=== PATIENT | female | born 1965 | race Caucasian/White ===

== ENCOUNTER 2020-05-27 10:16 | Outpatient (CLI) | payer OTHER, SELFPAY ==
--- NOTE | ~2020-05-27 | MR_ITS ---
EXAMINATION: MR knee RT wo con DATE: 05/27/2020 11:44 INDICATION: Primary osteoarthritis of the right knee with chronic generalized right knee pain TECHNIQUE: Magnetic resonance imaging (MRI) of the right knee was performed without intravenous contr ast. Sequences included coronal PD-weighted FSE, coronal PD-weighted FS FSE, sagittal T2-weighted FS E, sagittal PD-weighted FS FSE and axial PD weighted fat saturated FSE. COMPARISON: None. FINDINGS: Medial compartment: Complex tear of the medial meniscus with longitudinal horizontal tear plane extending from the [employer] ior horn and crosses the medial extruded meniscal body into the anterior horn. Additional secondary t ear planes in the anterior horn and secondary radial tear and longitudinal vertical tear planes in th e small posterior horn. There is extensive cartilage loss which appears full/near full-thickness invo lving the majority of the medial tibial plateau and all but the posterior most weightbearing medial f emoral condyle. There is scattered mild irregularity to the articular cortex in the central to [employer] ior weightbearing lateral femoral condyle and regions of low signal intensity subarticular eburnation at the medial tibial plateau and anterior weightbearing medial femoral condyle. Moderate-sized large marginal osteophytes along the medial femoral condyle and small marginal osteophytes along the media l tibial plateau. Lateral compartment: Lateral meniscus is normal. Mild partial thickness cartilage loss with chondral surface regularity at the central aspect of the lateral tibial plateau and along the lateral side of the weightbearing ant erior to posterior lateral femoral condyle. Patellofemoral compartment: Full/near full-thickness chondral ulceration at the inferior aspect of the lateral patellar facet. Pa rtial-thickness cartilage loss with deep fissuring and mild subarticular edema at the central third o f the lateral patellar facet and patellar apical ridge. Small deep chondral ulceration with subarticu lar edema at the inferior aspect of the lateral trochlea and more prominently at the inferior aspect of the medial trochlea. There is some chondral surface regularity along the cephalad aspect of the tr ochlea both medially, laterally and at the trochlear groove. Moderate to large trochlear marginal ost eophytes and small to moderate-sized patellar marginal osteophytes. Ligaments and tendons: Anterior and posterior cruciate ligaments are normal. The medial collateral ligament and fibular jeovany ateral ligament complex are normal. The extensor mechanism is normal. The visualized medial and later al hamstring tendons as well as the iliotibial band are normal. Fluid: Small to moderate-sized right knee joint effusion. Moderate-sized Calvert's cyst. There are few scatter ed ovoid loose osteochondral bodies, 2 in the medial gutter of the suprapatellar pouch, one in the re cesses anterior to the intertubercular groove and one in the posterior recess posterior to the [employer] ior root of the lateral meniscus. Osseous/other: Normal marrow signal aside from the previous noted scattered mild subarticular edema. No fracture or pathologic marrow replacing process. IMPRESSION: 1. Complex medial meniscal tear. 2. Tricompartmental osteoarthritis, severe in the medial, moderate in the patellofemoral and mild in the lateral compartments with scattered moderate and high-grade chondromalacia as detailed above. 3. Small to moderate-sized right knee joint effusion with at least 4 scattered loose osteochondral radha dies. 4. Moderate-sized Calvert's cyst. Reviewed, dictated and finalized at location A. INPUT CLERK
== END 2020-05-27 10:17 ==
PROVIDERS: PCP Family Medicine
DX: M17.11 Unilateral primary osteoarthritis, right knee (principal); S83.231A Complex tear of medial meniscus, current injury, right knee, initial encounter; M94.261 Chondromalacia, right knee; M25.461 Effusion, right knee; M23.41 Loose body in knee, right knee; M71.21 Synovial cyst of popliteal space [Baker], right knee
CPT/HCPCS: 73721

== ENCOUNTER 2021-11-01 10:27 | Outpatient (CLI) | payer BC, SELFPAY ==
--- NOTE | ~2021-11-01 | XR_ITS ---
XR cervical spine 4-5V 11/01/2021 11:09 Indication: Rheumatoid arthritis. Procedure: 4 view cervical spine Comparison: No prior studies for comparison. Findings: There is moderate-severe multilevel facet hypertrophy.. There is degenerative anterolisthes is at C4-5 and C5-6. There is degenerative disc disease at C6-7. No prevertebral soft tissue abnormal ity. Odontoid process is normal. Lung apices are normal. Impression: 1: Moderate-severe cervical spondylosis. Reviewed, dictated and finalized at location A. Impression: 1: Moderate-severe cervical spondylosis.
--- NOTE | ~2021-11-01 | XR_ITS ---
EXAM: XR sacroiliac joints min 3V DATE: 11/01/2021 11:09 HISTORY: M05.79 - Rheumatoid arthritis with rheumatoid factor of m... . COMPARISON: None available. FINDINGS: Subjectively decreased mineralization. No fracture or dislocation. No lytic or blastic les ion. Subchondral sclerosis and erosion at the bilateral SI joints and pubic symphysis. Mild superior bilateral hip joint space narrowing. No erosion or periosteal change. Soft tissues within normal limi ts. IMPRESSION: Mild bilateral, symmetric sacroiliitis. Osteitis pubis. Mild osteoarthritic change in the bilateral hips. Reviewed, dictated and finalized at location K. IMPRESSION: Mild bilateral, symmetric sacroiliitis. Osteitis pubis. Mild osteoa rthritic change in the bilateral hips.
--- NOTE | ~2021-11-01 | XR_ITS ---
EXAM: XR hand BI arthritis min 3V DATE: 11/01/2021 11:09 HISTORY: M05.79 - Rheumatoid arthritis with rheumatoid factor of m... . COMPARISON: 05/28/2012. FINDINGS: Decreased mineralization. No fracture or dislocation. No lytic or blastic lesion. Joint sp rhett narrowing and minimal osteophytosis at multiple joints in the bilateral hands, most evident in th e interphalangeal joints of the fingers and the bilateral first MCP joints. More severe change with a djacent ossification/fragments in the PIP joints of the left middle and ring fingers, may have a comp onent of posttraumatic change. Moderate ulnar subluxation of the little fingers bilaterally in the ba ll-catcher's view, with mild subluxation of the remaining fingers. No erosion or periosteal change. S oft tissues within normal limits. IMPRESSION: Mild osteoarthritic changes in the hands. Moderate ulnar subluxation of the bilateral lit tle fingers, a finding that can be seen with rheumatoid arthritis. Reviewed, dictated and finalized at location K. IMPRESSION: Mild osteoarthritic changes in the hands. Moderate ulnar subluxatio n of the bilateral little fingers, a finding that can be seen with rheumatoid a rthritis.
--- NOTE | ~2021-11-01 | XR_ITS ---
EXAM: XR foot RT standing 2V, XR foot LT standing 2V DATE: 11/01/2021 11:09 HISTORY: M05.79 - Rheumatoid arthritis with rheumatoid factor of m... . COMPARISON: None available. FINDINGS: Decreased mineralization. No fracture or dislocation. No lytic or blastic lesion. Mild tyra ateral hallux valgus, slightly worse on the right. Mild degenerative change at the bilateral first MT P joints. Bilateral plantar and Achilles enthesopathy. Bilateral loss of the longitudinal arch. No er osion or periosteal change. Soft tissues within normal limits. IMPRESSION: Osteopenia. Bilateral hallux valgus. Bilateral Achilles and plantar enthesopathy. Bilater al pes planus. Reviewed, dictated and finalized at location K. IMPRESSION: Osteopenia. Bilateral hallux valgus. Bilateral Achilles and plantar enthesopathy. Bilateral pes planus.
[2021-11-01 10:51] LABS: Basophils Absolute Auto 0.1 K/mm3 (0.0-0.1); Basophils Percent Auto 0.7 % (0.2-1.2); Eosinophils Absolute Auto 0.3 K/mm3 (0-0.3); Eosinophils Percent Auto 3.1 % (0-4.4); Hematocrit 39.5 % (37.0-47.0); Hemoglobin 12.1 g/dL (12.0-15.0); Immature Granulocyte Absolute 0.03 K/mm3 (0.00-0.031); Immature Granulocyte Percent A 0.4 % (0-0.5); Lymphocytes Absolute Auto 2.52 K/mm3 (0.9-3.2); Mean Corpuscular HGB Conc 30.6 g/dl (32-36); Mean Corpuscular Hemoglobin 28.4 pg (26-34); Mean Corpuscular Volume 92.7 fl (80-100); Mean Platelet Volume 10.1 fl (7.4-10.4); Monocytes Absolute Auto 0.6 K/mm3 (0.1-0.6); Monocytes Percent Auto 6.8 % (2.6-8.5); Platelet Count Result 320 k/mm3 (150-375); Red Blood Count 4.26 M/mm3 (4.2-5.4); Red Cell Distribution Width 13.2 % (11.5-14.5); White Blood Count 8.4 K/mm3 (4.5-10.0)
[2021-11-01 10:57] LABS: Appearance Urine Clear (Clear); Bilirubin Urine Negative (Negative); Blood Urine Negative (Negative); Color Urine Yellow (Yellow); Glucose Urine UA Negative (Negative); Ketones Urine Trace mg/dL (Negative); Leukocyte Esterase Ur 1+ LEU/UL (Negative); Nitrate Urine Negative (Negative); Protein Urine Negative (Negative); Specific Grav Ur 1.025 (1.001-1.035); Urobilinogen Urine 0.2 mg/dL (<2.0)
[2021-11-01 10:59] LABS: Add Urine Microscopic? YES; Bacteria Urine Trace /hpf; Mucus Urine Rare /lpf; RBC Urine 0-2 /hpf (0-2); Squamous Epithelial Cell Urine Rare /hpf (Few); WBC Urine 0-3 /hpf
[2021-11-01 11:05] LABS: Rheumatoid Factor 19.1 IU/ML (<12)
[2021-11-01 11:06] LABS: Alanine Aminotransferase 44 U/L (6-35); Albumin Level 4.1 g/dL (3.5-5.1); Alkaline Phosphatase 116 U/L (38-126); Anion Gap 5 mmol/L (8-16); Aspartate Amino Transferase 22 U/L (14-36); Bilirubin,Total 0.3 mg/dL (0.2-1.3); Blood Urea Nitrogen 12 mg/dL (7-17); CRP < 0.5 mg/dL (<1.0); Calcium 8.5 mg/dL (8.4-10.2); Carbon Dioxide 32 mmol/L (22-30); Chloride 103 mmol/L (98-107); Estimated Glomerular Filt Rate > 60; Glucose 117 mg/dL (65-110); Potassium 4.2 mmol/L (3.4-5.0); Sodium 140 mmol/L (137-145)
[2021-11-01 11:45] LABS: Hepatitis B Surface Antigen Negative (Negative)
[2021-11-01 11:46] LABS: Erythrocyte Sedimentation Rate 16 mm/hr (0-20)
[2021-11-01 12:02] LABS: Hepatitis B Surface Anti Res Negative; Hepatitis C Virus Antibody Negative (Negative)
[2021-11-03 11:46] LABS: NIL 0.01 IU/mL; Quantiferon TB Plus, 1T NEGATIVE (NEGATIVE)
[2021-11-05 20:31] LABS: Anti Cyclic Citrullinated Pept 36 Units (<20)
== END 2021-11-01 10:28 | disposition home or self-care (01) ==
LOC: ANHLAB 10:29
PROVIDERS: PCP Family Medicine; Visit Provider Internal Medicine
DX: M19.90 Unspecified osteoarthritis, unspecified site (principal); M05.79 Rheumatoid arthritis with rheumatoid factor of multiple sites without organ or systems involvement; M85.872 Other specified disorders of bone density and structure, left ankle and foot; M85.871 Other specified disorders of bone density and structure, right ankle and foot; M20.12 Hallux valgus (acquired), left foot; M20.11 Hallux valgus (acquired), right foot; M77.32 Calcaneal spur, left foot; M77.31 Calcaneal spur, right foot; M21.42 Flat foot [pes planus] (acquired), left foot; M21.41 Flat foot [pes planus] (acquired), right foot; M46.1 Sacroiliitis, not elsewhere classified; M86.8X8 Other osteomyelitis, other site; M16.0 Bilateral primary osteoarthritis of hip; M19.042 Primary osteoarthritis, left hand; M19.041 Primary osteoarthritis, right hand; S63.20 Unspecified subluxation of other finger; M47.812 Spondylosis without myelopathy or radiculopathy, cervical region
CPT/HCPCS: 36415; 72050; 72202; 73130; 73620; 80053; 81001; 85025; 85652; 86038; 86140; 86200; 86430; 86480; 86706; 86803; 87340

== ENCOUNTER 2022-07-27 11:56 | Outpatient (CLI) | payer BC, SELFPAY ==
[2022-07-27 12:46] LABS: Appearance Urine Clear (Clear); Bilirubin Urine Negative (Negative); Blood Urine Negative (Negative); Color Urine Yellow (Yellow); Glucose Urine UA Negative (Negative); Ketones Urine Negative (Negative); Leukocyte Esterase Ur Negative LEU/UL (Negative); Nitrate Urine Negative (Negative); Protein Urine Negative (Negative); Specific Grav Ur 1.009 (1.001-1.035); Urobilinogen Urine 0.2 mg/dL (<2.0)
[2022-07-27 12:57] LABS: Alanine Aminotransferase 27 U/L (6-35); Albumin Level 4.1 g/dL (3.5-5.1); Alkaline Phosphatase 98 U/L (38-126); Anion Gap 7 mmol/L (8-16); Aspartate Amino Transferase 21 U/L (14-36); Bilirubin,Total 0.5 mg/dL (0.2-1.3); Blood Urea Nitrogen 12 mg/dL (7-17); CRP 0.5 mg/dL (<1.0); Calcium 8.8 mg/dL (8.4-10.2); Carbon Dioxide 27 mmol/L (22-30); Chloride 102 mmol/L (98-107); Estimated Glomerular Filt Rate > 60; Glucose 92 mg/dL (65-110); Sodium 136 mmol/L (137-145)
[2022-07-27 13:03] LABS: Erythrocyte Sedimentation Rate 17 mm/hr (0-20)
[2022-07-27 13:12] LABS: Add Urine Microscopic? NO
== END 2022-07-27 11:57 | disposition home or self-care (01) ==
PROVIDERS: PCP Family Medicine; Visit Provider Internal Medicine
DX: M05.79 Rheumatoid arthritis with rheumatoid factor of multiple sites without organ or systems involvement (principal); M19.90 Unspecified osteoarthritis, unspecified site
CPT/HCPCS: 36415; 80053; 81003; 85652; 86140

== ENCOUNTER 2023-02-15 07:46 | Outpatient (CLI) | payer OTHER, SELFPAY ==
[2023-02-15 10:32] LABS: Cortisol Baseline 3.63 ug/dL
[2023-02-15 10:34] LABS: Cortisol 30 Minute 5.34 ug/dL
[2023-02-15 11:00] LABS: Cortisol 60 Minute 5.86 ug/dL
== END 2023-02-15 07:47 | disposition home or self-care (01) ==
PROVIDERS: PCP Internal Medicine; Visit Provider Internal Medicine
DX: E27.40 Unspecified adrenocortical insufficiency (principal)
CPT/HCPCS: 36415; 82533; 96372; J0834

== ENCOUNTER 2023-05-11 11:55 | Outpatient (CLI) | payer OTHER, SELFPAY ==
[2023-05-11 12:27] LABS: Hematocrit 41.9 % (37.0-47.0); Mean Corpuscular Hemoglobin 28.5 pg (26-34); Mean Corpuscular Volume 91.9 fl (80-100); Mean Platelet Volume 11.1 fl (7.4-10.4); Platelet Count Result 318 k/mm3 (150-375); Red Blood Count 4.56 M/mm3 (4.2-5.4); Red Cell Distribution Width 13.1 % (11.5-14.5)
[2023-05-11 12:39] LABS: Appearance Urine Cloudy (Clear); Bacteria Urine None Seen /hpf; Bilirubin Urine Negative (Negative); Blood Urine Negative (Negative); Color Urine Dark Yellow (Yellow); Glucose Urine UA Negative (Negative); Ketones Urine Trace mg/dL (Negative); Leukocyte Esterase Ur Trace LEU/UL (Negative); Nitrate Urine Negative (Negative); Non Pathogenic Casts 0-2; Protein Urine Trace mg/dL (Negative); RBC Urine 0-2 /hpf (0-2); Specific Grav Ur 1.019 (1.001-1.035); Squamous Epithelial Cell Urine None seen /hpf (Few); WBC Urine 0-5 /hpf
[2023-05-11 12:40] LABS: Add Urine Microscopic? YES
[2023-05-11 12:46] LABS: Alanine Aminotransferase 32 U/L (6-35); Albumin Level 4.1 g/dL (3.5-5.1); Alkaline Phosphatase 103 U/L (38-126); Anion Gap 7 mmol/L (8-16); Aspartate Amino Transferase 30 U/L (14-36); Bilirubin,Total 0.4 mg/dL (0.2-1.3); Blood Urea Nitrogen 11 mg/dL (7-17); CRP < 0.5 mg/dL (<1.0); Calcium 9.4 mg/dL (8.4-10.2); Carbon Dioxide 27 mmol/L (22-30); Chloride 104 mmol/L (98-107); Estimated Glomerular Filt Rate > 60; Glucose 126 mg/dL (65-110); Potassium 3.6 mmol/L (3.4-5.0); Sodium 138 mmol/L (137-145)
[2023-05-11 12:52] LABS: Erythrocyte Sedimentation Rate 16 mm/hr (0-20)
== END 2023-05-11 11:56 | disposition home or self-care (01) ==
LOC: ANHLAB 11:56
PROVIDERS: PCP Internal Medicine; Visit Provider Internal Medicine
DX: M05.79 Rheumatoid arthritis with rheumatoid factor of multiple sites without organ or systems involvement (principal)
CPT/HCPCS: 36415; 80053; 81001; 85027; 85652; 86140

== ENCOUNTER 2023-06-21 09:50 | Outpatient (CLI) | payer OTHER, SELFPAY ==
[2023-06-21 11:19] LABS: Hemoglobin A1C 5.5 % (<5.7)
[2023-06-21 11:33] LABS: Free T4 Free Thyroxine 0.85 ng/mL (0.78-2.19); Vitamin D 25 Hydroxy 26.5 ng/mL
== END 2023-06-21 09:51 | disposition home or self-care (01) ==
LOC: ANHLAB 09:52
PROVIDERS: PCP Internal Medicine; Visit Provider Internal Medicine
DX: E27.40 Unspecified adrenocortical insufficiency (principal)
CPT/HCPCS: 36415; 82306; 83036; 84439; 84443

== ENCOUNTER 2023-07-24 08:03 | Outpatient (CLI) | payer OTHER, SELFPAY ==
[2023-07-24 09:00] LABS: Appearance Urine Clear (Clear); Bilirubin Urine Negative (Negative); Blood Urine Negative (Negative); Color Urine Yellow (Yellow); Glucose Urine UA Negative (Negative); Ketones Urine Negative (Negative); Leukocyte Esterase Ur Negative LEU/UL (Negative); Nitrate Urine Negative (Negative); Protein Urine Negative (Negative); Specific Grav Ur 1.022 (1.001-1.035); Urobilinogen Urine 0.2 mg/dL (<2.0)
[2023-07-24 09:03] LABS: Hematocrit 39.9 % (37.0-47.0); Hemoglobin 12.6 g/dL (12.0-15.0); Mean Corpuscular HGB Conc 31.6 g/dl (32-36); Mean Corpuscular Hemoglobin 28.5 pg (26-34); Mean Corpuscular Volume 90.3 fl (80-100); Mean Platelet Volume 11.3 fl (7.4-10.4); Platelet Count Result 302 k/mm3 (150-375); Red Blood Count 4.42 M/mm3 (4.2-5.4); Red Cell Distribution Width 12.8 % (11.5-14.5); White Blood Count 7.5 K/mm3 (4.5-10.0)
[2023-07-24 09:11] LABS: Add Urine Microscopic? NO
[2023-07-24 09:24] LABS: Alanine Aminotransferase 23 U/L (6-35); Albumin Level 4.4 g/dL (3.5-5.1); Alkaline Phosphatase 102 U/L (38-126); Anion Gap 5 mmol/L (4-12); Aspartate Amino Transferase 23 U/L (14-36); Bilirubin,Total 0.4 mg/dL (0.2-1.3); Blood Urea Nitrogen 16 mg/dL (7-17); CRP < 0.5 mg/dL (<1.0); Calcium 9.5 mg/dL (8.4-10.2); Carbon Dioxide 29 mmol/L (22-30); Chloride 103 mmol/L (98-107); Estimated Glomerular Filt Rate > 60; Glucose 88 mg/dL (65-110); Potassium 3.8 mmol/L (3.4-5.0); Sodium 137 mmol/L (137-145)
[2023-07-24 09:46] LABS: Erythrocyte Sedimentation Rate 17 mm/hr (0-20)
[2023-07-24 09:52] LABS: Cortisol 30 Minute 7.77 ug/dL
[2023-07-24 10:11] LABS: Cortisol 60 Minute 8.21 ug/dL
== END 2023-07-24 08:04 | disposition home or self-care (01) ==
LOC: ANHOUTPT 08:03
PROVIDERS: PCP Internal Medicine; Visit Provider Internal Medicine
DX: M05.79 Rheumatoid arthritis with rheumatoid factor of multiple sites without organ or systems involvement (principal); E27.40 Unspecified adrenocortical insufficiency
CPT/HCPCS: 36415; 80053; 81003; 82533; 85027; 85652; 86140; 96372; J0834

== ENCOUNTER 2024-02-08 14:16 | Outpatient (CLI) | payer OTHER, SELFPAY ==
--- NOTE | ~2024-02-08 | DEXA_ITS ---
Bone Density Report Name: MARQUES CAPONE Age: 58 Sex: Female Ethnicity: White Date of : 1965 Indication: postmenopausal; screening for osteoporosis; parental hip fracture; height loss; asthma or emphysema; hysterectomy; rheumatoid arthritis; Referring Provider: JAMES GOMEZ Study: Bone densitometry was performed. Exam Date: February 08, 2024 Accession number: [id number] Bone Density: Region BMD T-score Z-score Classification AP Spine(L1-L4) 0.820 -2.1 -0.6 Osteopenia Femoral Neck (Left) 0.597 -2.3 -1.0 Osteopenia Total Hip (Left) 0.832 -0.9 0.1 Normal Femoral Neck (Right) 0.616 -2.1 -0.8 Osteopenia Total Hip (Right) 0.794 -1.2 -0.3 Osteopenia Femoral Neck Mean 0.607 -2.2 -0.9 Osteopenia Total Hip Mean 0.813 -1.1 -0.1 Osteopenia World Health Organization criteria for BMD impression classify patients as: Normal (T-score at or above -1.0), Osteopenia (T-score between -1.0 and -2.5), or Osteoporosis (T-score at or below -2.5). 10-year Fracture Risk(1): Major Osteoporotic Fracture 24% Hip Fracture 2.1% Reported Risk Factors: [place] (), Neck BMD=0.597, BMI=33.0, parental fracture, rheumatoid arthritis (1) FRAX(R) Version 3.08. Fracture probability calculated for an untreated patient. Fracture probability may be lower if the patient has received treatment. Clinical Information Provided by Patient: Parent has had a hip fracture Has rheumatoid arthritis Has used the following medications: Vitamin D, Calcium Has the following medical conditions: Asthma or Emphysema, Hysterectomy Patient maximum height was 63.0 Menopause Age: 58 Drinks caffeinated beverages Onset of menses at age 11 Number of children 4 Impression: The patient has low bone mass, based on the Left Femoral Neck T-score. The patient has risk factors, including: parental hip fracture. Discussion: BONE DENSITY IS LOW AT ONE OR MORE SKELETAL SITES. This patient's lowest T-score is low at one or more skeletal sites. It meets the World Health Organization's (WHO) criteria for ?low bone mass? (T-score between -1.0 and -2.5). The patient's 10-year risk of fracture as calculated by FRAX is less than the threshold where pharmacological therapy is recommended by the National Osteoporosis Foundation (NOF). However, all treatment decisions require clinical judgment and consideration of individual patient factors, including patient preferences, comorbidities, previous drug use, risk factors not captured in the FRAX model (e.g., frailty, falls, vitamin D deficiency, increased bone turnover, interval significant decline in bone density) and possible under or overestimation of fracture risk by FRAX. The patient should follow a healthful lifestyle (good nutrition with adequate calcium and vitamin D, and appropriate weight-bearing exercise). Follow-Up: Consider repeating this study in 2 to 3 years to reassess this patient's status, or sooner if there is some new clinical indication. Reported by: LUDIN on 02/08/2024 2:38:00 PM. Reviewed, dictated and finalized at location A.
== END 2024-02-08 14:17 | disposition home or self-care (01) ==
LOC: CHSIMG 14:21
PROVIDERS: PCP Family Medicine; Visit Provider Internal Medicine
DX: Z78.0 Asymptomatic menopausal state (principal); M85.89 Other specified disorders of bone density and structure, multiple sites
CPT/HCPCS: 77080